=== PATIENT | male | born 1945 | race Caucasian/White ===

== ENCOUNTER → 2017-02-25 | Outpatient (CLI) | payer OTHER, MEDICARE | LOC: FIMAGING 14:48 | PROVIDERS: ATTEND Family Medicine | DX: M20.032 Swan-neck deformity of left finger(s) (principal) ==

== ENCOUNTER → 2017-03-18 | Outpatient (CLI) | payer OTHER, MEDICARE | LOC: FIMAGING 13:31 | PROVIDERS: ATTEND Internal Medicine | DX: R91.1 Solitary pulmonary nodule (principal); I71.2 Thoracic aortic aneurysm, without rupture; I25.10 Atherosclerotic heart disease of native coronary artery without angina pectoris; R91.8 Other nonspecific abnormal finding of lung field ==

== ENCOUNTER → 2017-04-15 | Outpatient (CLI) | payer OTHER, MEDICARE | LOC: BHFA 14:00 | PROVIDERS: ATTEND Internal Medicine Cardiovascular Disease | DX: I25.10 Atherosclerotic heart disease of native coronary artery without angina pectoris (principal) | CPT/HCPCS: 78452; 93017; A9500; J2785 ==

== ENCOUNTER → 2017-07-19 | Outpatient (CLI) | payer OTHER, MEDICARE | LOC: BMCIMAGING 16:53 | PROVIDERS: ATTEND Physician Assistant | DX: M21.242 Flexion deformity, left finger joints (principal) ==

== ENCOUNTER 2017-11-11 12:22 | Emergency (ER) | payer OTHER, MEDICARE ==
[2017-11-11 12:25] VITALS: TEMP 97.7
--- NOTE | 2017-11-11 12:33 | CPEKG ---
Heart Rate: 77 RR Interval: 779 P-R Interval: 184 QRSD Interval: 92 QT Interval: 404 QTC Interval: 458 P [place]: 58 QRS [place]: -27 T Wave [place]: 56 EKG Severity - OTHERWISE NORMAL ECG - EKG Impression: SINUS RHYTHM EKG Impression: BORDERLINE LEFT AXIS DEVIATION Electronically Signed By: Richie Craven 11-Nov-2017 12:58:10
--- NOTE | 2017-11-11 12:45 | EDPHY ---
H & P Time Seen by Provider: 11/11/17 12:35 HPI/ROS: CHIEF COMPLAINT: Shortness of breath with exertion HISTORY OF PRESENT ILLNESS: This 72-year-old man had stenting approximately 3 years ago after he had an abnormal treadmill test. The treadmill test was ordered as part of his preoperative evaluation for right shoulder surgery. Over the past 2 weeks he says that he is feels like he "has a cold coming on " but describes his symptoms as dull chest discomfort on the right side of his sternum and feeling short of breath every time he walks uphill. When he stops, the symptoms go way. Over the last couple of days even going up the stairs at his house he feels short of breath and right-sided chest discomfort goes away when he stops. Chest discomfort does not radiate. Not associated with fever or chills. He does have some head congestion associated as well as coughing 2 or 3 times a day but no hemoptysis or other sputum production. No leg swelling or recent travel or immobilization. Patient says it is worse in the morning and worse [place] but better in [place]. Currently lying in the gurney in the emergency department he is asymptomatic. He went to urgent care today and they referred him to us. REVIEW OF SYSTEMS: Eye: no change in vision ENT: no sore throat Cardiac: HPI Pulmonary: HPI Abdomen: no vomiting, diarrhea, abdominal pain Musculoskeletal: no back pain or leg swelling Skin: no rash Neuro: no headache Constitutional: no fever : no urinary symptoms A comprehensive 10 point review of systems is otherwise negative aside from elements mentioned in the history of present illness. PAST MEDICAL HISTORY: Includes bipolar, stenting as above, intracranial hemorrhage when he was on Effient. Social history: Nonsmoker, lives in the [facility] General Appearance: Alert and conversant, cooperative. Eyes: No scleral icterus. ENT, Mouth: Normal mucous membranes. Respiratory: Slight bilateral expiratory wheezing but no focal lung sounds and no rales. Cardiovascular: Regular rate and rhythm. Gastrointestinal: Abdomen is soft and non tender. Neurological: Alert and oriented x3. Normally conversant. Face symmetric, normal movement and sensation in all extremities. Skin: Warm and dry, no rashes. Musculoskeletal: No peripheral edema and no joint swelling. No calf tenderness. Psychiatric: Not agitated. Emergency Department course/MDM: Differential includes but not limited to pneumonia, PE, acute coronary syndrome , reactive airway disease with URI. Plan for EKG, chest x-ray, D-dimer and troponin. DuoNeb. 1258: Patient's blood pressure is 75 systolic although he is not dizzy or lightheaded and does not describe syncope. He is currently asymptomatic. It was recheck with a manual cuff. IV normal saline 1 L. 1319: D-dimer less than age adjusted cut off of 0.73. Low pretest probability for pulmonary embolism. Chest x-ray personally interpreted as negative. No infiltrates or pneumothorax. Normal mediastinum. 1400: 99/61. With the transient hypotension in the emergency department, admission for further workup is recommended to the patient. Patient refuses admission. He has logical reasons for not wanting to stay including the fact that he has a dog in the car that he needs to take care of. He tells me that "I'm just getting a cold. " He clearly has capacity to make decisions regarding his care. He is warned by me, and states he understands the risks of leaving against my recommendation including but not limited to disability, heart attack, . He will be treated with steroids and nebulizers for his audible wheezing and encouraged to return if he changes his mind or feels worse. 1445: CBC still pending, patient insistent about leaving now against medical advice. Smoking Status: Former smoker Constitutional: Initial Vital Signs Temperature (C) 36.5 C 11/11/17 12:23 Heart Rate 80 11/11/17 12:23 Respiratory Rate 18 11/11/17 12:23 Blood Pressure 110/78 11/11/17 12:23 O2 Sat (%) 94 11/11/17 12:23 O2 Delivery Mode Room Air Allergies/Adverse Reactions: Sulfa (Sulfonamide Antibiotics) Allergy (Severe, Verified 11/12/14 04:14) Hives lithium Allergy (Intermediate, Verified 11/12/14 04:14) Other-Enter Comments Home Medications: Medication Instructions Recorded Citalopram Hydrobromide [celeXA 10 10 mg PO DAILY@12 10/22/14 MG] LORazepam [Ativan (*)] 0.5 mg PO HS PRN 10/22/14 Methylphenidate HCl [Ritalin 5mg 15 mg PO BID@,18 10/22/14 (*)] Rosuvastatin Calcium [Crestor 20mg 20 mg PO HS 10/22/14 (*)] Tamsulosin HCl [Flomax 0.4 MG (*)] 0.4 mg PO HS 10/22/14 lamoTRIgine [LamICTAL 100 MG (*)] 50 mg PO BID@12,10/22/14 Asenapine Maleate [Saphris] 10 mg SL HS 11/05/14 Acetaminophen [Tylenol 325mg (*)] 650 mg PO Q4 PRN #0 tab 11/06/14 Metoprolol Tartrate [Lopressor 25 12.5 mg PO BID #60 tab 11/06/14 mg (*)] Albuterol Hfa Anes Only [Proair 2 puffs IH QID PRN #1 mdi 11/11/17 Hfa Icu (*)] predniSONE [prednisone 20mg (RX)] 40 mg PO DAILY 6 Days tab 11/11/17 Medical Decision Making - Diagnostics EKG Interpretation: 12-lead EKG interpreted by me; official reading is in trace master. My interpretation is sinus rhythm with borderline left axis, no acute ST changes. Rate 77. Imaging Results: Imaging Impressions Chest X-Ray 11/11/17 12:55 Impression: Clear lungs. No acute process. Differential Diagnosis: Differential diagnosis considered for shortness of breath including but not limited to pulmonary infectious process, COPD, asthma, pulmonary embolus and congestive heart failure. - Data Points Laboratory Results: Laboratory Results 11/11/17 13:45 11/11/17 12:46 11/11/17 11/11/17 11/11/17 13:45 12:46 12:46 WBC 8.83 10^3/uL 10^3/uL (3.80-9.50) RBC 3.70 10^6/uL L 10^6/uL (4.40-6.38) Hgb 12.3 g/dL L g/dL (13.7-17.5) Hct 35.3 % L % (40.0-51.0) MCV 95.4 fL fL (81.5-99.8) MCH 33.2 pg pg (27.9-34.1) MCHC 34.8 g/dL g/dL (32.4-36.7) RDW 12.2 % % (11.5-15.2) Plt Count 199 10^3/uL 10^3/uL (150-400) MPV 8.1 fL L fL (8.7-11.7) Neut % (Auto) 69.0 % % (39.3-74.2) Lymph % (Auto) 19.0 % % (15.0-45.0) Borden % (Auto) 10.1 % % (4.5-13.0) Eos % (Auto) 0.7 % % (0.6-7.6) Baso % (Auto) 0.7 % % (0.3-1.7) Nucleat RBC Rel Count 0.0 % % (0.0-0.2) Absolute Neuts (auto) 6.10 10^3/uL 10^3/uL (1.70-6.50) Absolute Lymphs (auto) 1.68 10^3/uL 10^3/uL (1.00-3.00) Absolute Monos (auto) 0.89 10^3/uL H 10^3/uL (0.30-0.80) Absolute Eos (auto) 0.06 10^3/uL 10^3/uL (0.03-0.40) Absolute Basos (auto) 0.06 10^3/uL 10^3/uL (0.02-0.10) Absolute Nucleated RBC 0.00 10^3/uL 10^3/uL (0-0.01) Immature Gran % 0.5 % % (0.0-1.1) Immature Gran # 0.04 10^3/uL 10^3/uL (0.00-0.10) D-Dimer 0.63 ug/mLFEU H ug/mLFEU (0.00-0.50) Sodium 144 mEq/L mEq/L (134-144) Potassium 4.2 mEq/L mEq/L (3.5-5.2) Chloride 108 mEq/L mEq/L (97-110) Carbon Dioxide 24 mEq/l mEq/l (22-31) Anion Gap 12 mEq/L mEq/L (8-16) BUN 19 mg/dL mg/dL (7-23) Creatinine 0.9 mg/dL mg/dL (0.7-1.3) Estimated GFR > 60 Glucose 99 mg/dL mg/dL (70-100) Calcium 8.8 mg/dL mg/dL (8.5-10.4) Troponin I < 0.012 ng/mL ng/mL (0.000-0.034) 11/11/17 12:46 WBC REJ RBC Not Reported Hgb Not Reported Hct Not Reported MCV Not Reported MCH Not Reported MCHC Not Reported RDW Not Reported Plt Count Not Reported MPV Not Reported Neut % (Auto) Not Reported Lymph % (Auto) Not Reported Borden % (Auto) Not Reported Eos % (Auto) Not Reported Baso % (Auto) Not Reported Nucleat RBC Rel Count Not Reported Absolute Neuts (auto) Not Reported Absolute Lymphs (auto) Not Reported Absolute Monos (auto) Not Reported Absolute Eos (auto) Not Reported Absolute Basos (auto) Not Reported Absolute Nucleated RBC Not Reported Immature Gran % Not Reported Immature Gran # Not Reported D-Dimer Sodium Potassium Chloride Carbon Dioxide Anion Gap BUN Creatinine Estimated GFR Glucose Calcium Troponin I Medications Given: Discontinued Medications Albuterol (Proventil Neb) 3 ml IH EDNOW ONE Stop: 11/11/17 14:07 Last Admin: 11/11/17 14:10 Dose: 3 ml Albuterol (Proventil Neb) 3 ml IH EDNOW ONE Stop: 11/11/17 14:07 Last Admin: 11/11/17 14:10 Dose: 3 ml Albuterol/Ipratropium (Duoneb) 3 ml IH EDNOW ONE Stop: 11/11/17 12:55 Last Admin: 11/11/17 13:04 Dose: 3 ml Sodium Chloride (Ns) 1,000 mls @ 0 mls/hr IV EDNOW ONE; Wide Open PRN Reason: Protocol Stop: 11/11/17 12:59 Last Admin: 11/11/17 13:04 Dose: 1,000 mls Methylprednisolone Sodium Succinate (Solu-Medrol) 125 mg IVP EDNOW ONE Stop: 11/11/17 14:07 Last Admin: 11/11/17 14:10 Dose: 125 mg Departure - Departure Disposition: Against Medical Advice Clinical Impression: Chest pain Qualifiers: Chest pain type: unspecified Qualified Code(s): R07.9 - Chest pain, unspecified Reactive airway disease Qualifiers: Asthma severity: moderate Asthma persistence: persistent Asthma complication type: with acute exacerbation Qualified Code(s): J45.41 - Moderate persistent asthma with (acute) exacerbation Condition: Good Instructions: Chest Pain (ED), Reactive Airways Disease (ED) Additional Instructions: Please return if you get worsening chest pain or shortness of breath, fevers or chills, or if you change your mind about inpatient evaluation. Referrals: Keri Arana MD [Primary Care Provider] - As per Instructions Prescriptions: Albuterol Hfa Anes Only [Proair Hfa Icu (*)] 2 puffs IH QID PRN #1 mdi PRN Reason: sob/wheezing predniSONE [prednisone 20mg (RX)] 40 mg PO DAILY 6 Days tab
[2017-11-11] MEDS ORDERED: IPRATROPIUM/ALBUTEROL 3 ML DEYVIAL IH ONE (12:54)
[2017-11-11] MEDS ORDERED: NS 1,000 ML IV ONE (12:58)
[2017-11-11] MEDS ORDERED: IPRATROPIUM/ALBUTEROL 3 ML DEYVIAL ONE (13:01)
[2017-11-11 13:10] LABS: ANION GAP 12 mEq/L (8-16); CALCIUM 8.8 mg/dL (8.5-10.4); CARBON DIOXIDE 24 mEq/l (22-31); CHLORIDE 108 mEq/L (97-110); CREATININE 0.9 mg/dL (0.7-1.3); GLOMERULAR FILTRATION RATE > 60; GLUCOSE 99 mg/dL (70-100); POTASSIUM 4.2 mEq/L (3.5-5.2); SODIUM 144 mEq/L (134-144)
[2017-11-11 13:21] LABS: TROPONIN I < 0.012 ng/mL (0.000-0.034)
[2017-11-11] MEDS ORDERED: ALBUTEROL 3 ML DEYVIAL IH ONE ×2 (14:06)
[2017-11-11] MEDS ORDERED: methylPREDNISolone SOD SUCC 125 MG/2 ML VIAL IVP ONE (14:06)
[2017-11-11 14:39] VITALS: BP 99/57; PULSE 74; RESP 18; O2SAT 95
[2017-11-11 14:50] LABS: % IMMATURE GRANULYOCYTES 0.5 % (0.0-1.1); ABSOLUTE IMMATURE GRANULOCYTES 0.04 10^3/uL (0.00-0.10); ADD DIFF? NO; ADD MORPH? NO; ADD SCAN? NO; ATYPICAL LYMPHOCYTE FLAG 10 (0-99); FRAGMENT RBC FLAG 0 (0-99); HEMATOCRIT 35.3 % (40.0-51.0); HEMOGLOBIN 12.3 g/dL (13.7-17.5); LEFT SHIFT FLG 0 (0-99); LIPEMIA HEMOLYSIS FLAG 90 (0-99); MEAN CELL HEMOGLOBIN 33.2 pg (27.9-34.1); MEAN CELL HEMOGLOBIN CONCENTR. 34.8 g/dL (32.4-36.7); MEAN CELL VOLUME 95.4 fL (81.5-99.8); MEAN PLATELET VOLUME 8.1 fL (8.7-11.7); PLATELET CLUMPS FLAG 10 (0-99); PLATELET COUNT 199 10^3/uL (150-400); RED CELL DISTRIBUTION WIDTH 12.2 % (11.5-15.2)
== END 2017-11-11 14:49 | disposition left against medical advice (07) ==
DX: J45.41 Moderate persistent asthma with (acute) exacerbation (principal); R07.9 Chest pain, unspecified; E86.9 Volume depletion, unspecified; Z87.891 Personal history of nicotine dependence
CPT/HCPCS: 71020; 93005; 96361; 96374; 99285; J2930

== ENCOUNTER → 2017-12-08 | Outpatient (CLI) | payer OTHER, MEDICARE | LOC: BHFA 14:00 | PROVIDERS: ATTEND Internal Medicine Interventional Cardiology | DX: I25.10 Atherosclerotic heart disease of native coronary artery without angina pectoris (principal) | CPT/HCPCS: 78452; 93017; A9500 ==

== ENCOUNTER 2018-04-17 05:46 | Inpatient (IN) | payer OTHER, MEDICARE ==
[2018-04-17] MEDS ORDERED: LR 1,000 ML IV ONE (06:20)
[2018-04-17] MEDS ORDERED: ceFAZolin 2 GM/SWFI 2 GM/20 ML SYR IVP ONE (06:20)
[2018-04-17] MEDS ORDERED: ACETAMINOPHEN 500 MG TAB PO ONE (06:20)
[2018-04-17] MEDS ORDERED: LIDOCAINE 1% 2 ML INJ ID PRN (06:20)
[2018-04-17] MEDS ORDERED: GABAPENTIN 300 MG CAP PO ONE (06:20)
[2018-04-17] MEDS ORDERED: BUPIVACAINE 0.25% 30 ML SDV ONE (06:30)
[2018-04-17] MEDS ORDERED: EPINEPHrine 1 MG/ML INJ ONE ×2 (06:32→07:17)
[2018-04-17] MEDS ORDERED: BACITRACIN 50,000 UNITS/10 ML SYR IRR ONE ×2 (06:32→10:38)
[2018-04-17] MEDS ORDERED: THROMBIN (BOVINE) 5,000 UNIT VIAL TP ONE (06:33)
[2018-04-17] MEDS ORDERED: CHLORHEXIDINE GLUC HIBICLENS 118 ML BTL TP ONE (06:33)
--- NOTE | 2018-04-17 06:43 | PDHPUP ---
History & Physical Update H&P update statement: This history and physical update is based on an assessment of the patient which was completed after admission or registration (within 24 hours), but prior to the surgery/procedure. H&P update: H&P reviewed & patient examined, no change in patient's condition since H&P completed
[2018-04-17] MEDS ORDERED: MIDAZOLAM 2 MG/2 ML VIAL ONE (07:23)
[2018-04-17] MEDS ORDERED: MIDAZOLAM 2 MG/2 ML VIAL IVP ONE (07:25)
--- NOTE | 2018-04-17 07:27 | PDANEPAE ---
ANE Past Medical History - Cardiovascular History Hx Hypertension: No Hx Arrhythmias: No Hx Chest Pain: No Hx Coronary Artery / Peripheral Vascular Disease: Yes Hx CHF / Valvular Disease: No Hx Palpitations: No Cardiovascular History Comment: STENT 10/22/14 - Pulmonary History Hx COPD: No Hx Asthma/Reactive Airway Disease: No Hx Recent Upper Respiratory Infection: No Hx Oxygen in Use at Home: No Hx Sleep Apnea: No Sleep Apnea Screening Result - Last Documented: Positive Pulmonary History Comment: PULMONARY NODULE - Neurologic History Hx Cerebrovascular Accident: No Hx Seizures: No Hx Dementia: No - Endocrine History Hx Diabetes: No - Renal History Hx Renal Disorders: Yes Renal History Comment: BPH. NOCTURIA - Liver History Hx Hepatic Disorders: No - Neurological & Psychiatric Hx Hx Neurological and Psychiatric Disorders: Yes Neurological / Psychiatric History Comment: BIPOLAR - Cancer History Hx Cancer: No - Congenital Disorder History Hx Congenital Disorders: No - GI History Hx Gastrointestinal Disorders: No - Other Health History Other Health History: ADRENAL ADENOMA. ACUTE ENCEPHALOPATHY. HYPOGONADISM - Chronic Pain History Chronic Pain: Yes (HEADACHES) - Surgical History Prior Surgeries: LUMBAR FUSION. MELO CATARACT. T&A. VASECTOMY WITH REVERSAL ANE Review of Systems Review of Systems: - Exercise capacity METS (RN): 4 METS ANE Patient History - Allergies Allergies/Adverse Reactions: Sulfa (Sulfonamide Antibiotics) Allergy (Severe, Verified 03/30/18 11:33) Hives lithium Allergy (Intermediate, Verified 03/30/18 11:33) Other-Enter Comments - Home Medications Home Medications: LORazepam [Ativan (*)] 0.5 mg PO BID PRN 10/22/14 [Last Taken 04/14/18] Tamsulosin HCl [Flomax 0.4 MG (*)] 0.4 mg PO HS 10/22/14 [Last Taken 04/16/18 22 :00] lamoTRIgine [LamICTAL 100 MG (*)] 200 mg PO HS 10/22/14 [Last Taken 04/16/18 22: 00] Acetaminophen [Tylenol 325mg (*)] 325 mg PO Q6 PRN 03/29/18 [Last Taken 04/09/18 ] Aspirin [Aspirin 81mg (*)] 81 mg PO DAILY 03/29/18 [Last Taken 04/09/18] Atorvastatin Calcium [Lipitor 40 mg (*)] 40 mg PO HS 03/29/18 [Last Taken 22:00] Citalopram [CeleXA] 20 mg PO DAILY 03/29/18 [Last Taken 04/16/18] Ferrous Sulfate [Ferrous Sulf 325 MG (*)] 325 mg PO DAILY 03/29/18 [Last Taken 04/09/18] Melatonin [Melatonin 3 MG (*)] 3 mg PO HS 03/29/18 [Last Taken 04/15/18] carBAMazepine [TEGretol (*)] 300 mg PO BID 03/29/18 [Last Taken 04/17/18 04:00] - NPO status NPO Since - Liquids (Date): 04/16/18 NPO Since - Liquids (Time): 22:00 NPO Since - Solids (Date): 04/16/18 NPO Since - Solids (Time): 22:00 - Anes Hx Anes Hx: no prior problems - Smoking Hx Smoking Status: Former smoker - Family Anes Hx Family Hx Anesthesia Complications: none ANE Labs/Vital Signs - Vital Signs Blood Pressure: 103/70 Heart Rate: 61 Respiratory Rate: 20 O2 Sat (%): 95 Height: 172.72 cm Weight: 77.111 kg ANE Physical Exam - Airway Neck exam: FROM Mallampati Score: Class 2 Mouth exam: normal dental/mouth exam - Pulmonary Pulmonary: no respiratory distress, no rales or rhonchi, clear to auscultation - Cardiovascular Cardiovascular: regular rate and rhythym, no murmur, rub, or gallop - ASA Status ASA Status: III ANE Anesthesia Plan Anesthesia Plan: general endotracheal anesthesia
[2018-04-17] MEDS ORDERED: PROPOFOL 200 MG/20 ML VIAL ONE (07:34)
[2018-04-17] MEDS ORDERED: PROPOFOL/EMULSION 500 MG/50 ML BOTTLE IV ONE ×2 (07:34→10:19)
[2018-04-17] MEDS ORDERED: HYDROmorphONE/DILAUDID 2 MG/ML INJ ONE ×2 (07:34→10:19)
[2018-04-17] MEDS ORDERED: ROCURONIUM 50 MG/5 ML VIAL ONE (07:38)
[2018-04-17] MEDS ORDERED: LIDOCAINE 2% 5 ML SDV ONE (07:38)
[2018-04-17] MEDS ORDERED: DEXAMETHASONE 4 MG/ML VIAL ONE ×2 (08:10)
[2018-04-17] MEDS ORDERED: diphenhydrAMINE 25 MG CAP PO PRN (08:32)
[2018-04-17] MEDS ORDERED: ONDANSETRON DISINTEGRATING 4 MG TAB PO PRN (08:32)
[2018-04-17] MEDS ORDERED: LACTULOSE 20 GM/30 ML UDCUP PO PRN (08:32)
[2018-04-17] MEDS ORDERED: morphINE PCA 30 MG/30 ML PCA IV PRN (08:32)
[2018-04-17] MEDS ORDERED: MAGNESIUM HYDROXIDE 30 ML UDCUP PO PRN (08:32)
[2018-04-17] MEDS ORDERED: NALOXONE HCL 0.4 MG/ML INJ IVP PRN ×2 (08:32→12:24)
[2018-04-17] MEDS ORDERED: BISACODYL 10 MG SUPP PR PRN (08:32)
[2018-04-17] MEDS ORDERED: KETAMINE 200 MG/20 ML VIAL ONE (08:39)
[2018-04-17] MEDS ORDERED: PHENYLEPHRINE HCL 100 MCG/ML SYR ONE ×3 (10:54→11:30)
[2018-04-17] MEDS ORDERED: PHENYLEPHRINE 10 MG/ML SDV ONE (12:00)
[2018-04-17] MEDS ORDERED: ceFAZolin 1 GM VIAL ONE (12:05)
[2018-04-17] MEDS ORDERED: ONDANSETRON 4 MG/2 ML VIAL IVP PRN (12:24)
[2018-04-17] MEDS ORDERED: PROMETHAZINE HCL 25 MG/ML INJ IVP PRN (12:24)
[2018-04-17] MEDS ORDERED: LABETALOL HCL 5 MG/ML 20 ML MDV IVP PRN (12:24)
[2018-04-17] MEDS ORDERED: ALBUTEROL 3 ML DEYVIAL IH PRN (12:24)
[2018-04-17] MEDS ORDERED: HYDROmorphONE/DILAUDID 2 MG/ML INJ IVP PRN (12:24)
[2018-04-17] MEDS ORDERED: LR 500 ML IV PRN (12:24)
[2018-04-17] MEDS ORDERED: ONDANSETRON 4 MG/2 ML VIAL ONE (12:34)
--- NOTE | 2018-04-17 13:38 | POSTOPPROG ---
Post Op Note Date of Operation: 04/17/18 Surgeon: Yanick Celis Dye Tank Tender: Kassidy Baird NP Anesthesiologist: Dr Macario Anesthesia: GET(General Endotracheal) Pre-op Diagnosis: Lumbar Stenosis Procedure: Removal hardware L4-5, L5-S1, L2-3, L3-4 TLIF with PSF L2-L5 Inf/Abcess present in the surg proc area at time of surgery?: No Depth: Deep Incisional (Fascial) EBL: 100-500 Total fluids administered: see anesthesia Complications: none Drains: Marcelo Palacios Date of Surgery: 04/17/18 Post Op Day: 0 Assessment/Plan: Assessment: 72 yr old male s/p L4-5, L5-S1 hardware removal, L2-3, L3-4 TLIF with PSF L2-L5 Plan: -Pain management, 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
--- NOTE | 2018-04-17 13:54 | POSTANESTH ---
Post Anesthetic Evaluation Cardiovascular Status: Normal, Stable, Similar to Pre-Op Cond Respiratory Status: Normal, Stable, Similar to Pre-op Cond. Level of Consciousness/Mental Status: Can Participate in Eval, Moderately Sleepy Pain Control: Adequate, Prn Tx Ordered Nausea/Vomiting Control: Adequate, Prn Tx Ordered Complications Possibly Related to Anesthesia: None Noted
[2018-04-17] MEDS ORDERED: fentaNYL 100 MCG/2 ML INJ ONE (13:56)
[2018-04-17] MEDS ORDERED: DIAZEPAM 5 MG/ML 1 ML SYR ONE (13:57)
[2018-04-17] MEDS: DIAZEPAM 5 MG/ML 1 ML SYR IVP PRN ×2 (14:02→15:17)
[2018-04-17] MEDS: fentaNYL 100 MCG/2 ML INJ IVP PRN ×4 (14:02→15:17)
[2018-04-17] MEDS: ACETAMINOPHEN 500 MG TAB PO SCH ×3 (15:44→21:18)
[2018-04-17] MEDS: FAMOTIDINE 20 MG TAB PO SCH ×2 (15:44→21:19)
[2018-04-17] MEDS: SENNOSIDES/DOCUSATE SODIUM TAB PO SCH ×2 (15:45→21:19)
[2018-04-17] MEDS: GABAPENTIN 300 MG CAP PO SCH ×2 (15:45→21:18)
[2018-04-17] MEDS: oxyCODONE IR 5 MG TAB PO PRN ×3 (16:09→21:20)
[2018-04-17] MEDS: METHOCARBAMOL 750 MG TAB PO PRN (16:11)
[2018-04-17] MEDS: ceFAZolin 2 GM/DEXTROSE 100 ML IV SCH (16:49)
--- NOTE | 2018-04-17 17:38 | GOP ---
[f rep st] OPERATIVE REPORT DATE OF OPERATION: 04/17/2018 SURGEON: Stephen Celis MD RN GYNECOLOGY: Kassidy Baird, Nurse Practitioner. PREOPERATIVE DIAGNOSIS: Severe spinal stenosis and adjacent segment disease, L2-3, L3-4; prior fusio n, L4-5, L5-S1. POSTOPERATIVE DIAGNOSIS: Severe spinal stenosis and adjacent segment disease, L2-3, L3-4; prior fusi on, L4-5, L5-S1. PROCEDURE PERFORMED: Removal of posterior segmental hardware L4, L5, S1 (60206); posterolateral and intervertebral arthrodesis L2-3, L3-4, with decompressions at each level bilaterally (91994 and 23416 ); placement of biomechanical intervertebral device L2-3, L3-4 (79523 x 2); posterior segmental instr umentation L2, L3, L4, L5 (23334); same incision bone graft harvest, microscope, spinal stereotaxy. FINDINGS: ESTIMATED BLOOD LOSS: 450 cc. INDICATIONS: Mr. Prajapati is an elderly gentleman with a prior history of a successful L4-5 and L5-S1 f usion. There was solid arthrodesis. He had some evidence of bony hypertrophy at the area of the fus ion sites, but there was really no evidence of complication or any significant nerve compression in m y view. He developed severe adjacent segment disease with radiating bilateral severe leg pain. I pichardo ggested removal of the prior hardware and an adjacent segment fusion at L2-3, L3-4. The risk of the surgery including the risk of spinal fluid leak, nerve injury, continued symptoms, and further adjace nt segment disease necessitating additional spinal surgery was discussed. He knew there was a chance surgery would fail to give him relief. He knew there was risk of screw and hardware malposition and malfunction. He also knew that surgery would be more uncomfortable, given the fact that we had to e xpose his entire prior surgical site and extended it rostrally for 2 levels. He accepted all of thes e risks and he wanted to proceed. DESCRIPTION OF PROCEDURE: Patient was taken to the operating room, placed in supine position. Gener al anesthesia was begun. He was flipped prone onto the Marcelo table. Care was taken to pad all poi nts of contact. His arms were kept at his side, and care was taken to protect his shoulders. His ba ck was sterilely prepped and draped in the usual fashion. We measured the prior surgical incision. There was a 37 mm incision on the left and a 43 mm incision on the right for a total of 8 cm. The ne w incision that we planned with 16 cm in length. Our original incision was 13 cm, but we later exten ded caudally because of the difficulty getting the S1 screws out. We did make a midline incision, ex posed the spinous processes at L1, L2, L3, L4, L5, and the sacrum. We exposed the prior hardware at L4-5 and S1. We removed the cap screws at L4-5 and S1. We then removed the rods and removed the L4 and L5 screws without any difficulty. Both S1 screws were encased in bone. There was solid posterol ateral bony arthrodesis at each level. We then took time to drill out each of the S1 screws and we w ere able to successfully remove these. We then denuded the facet joints at L2-3, L3-4. We preserved the L1-2 facet joints rostrally. We attached the [employer] reference frame, and using frame of [facility] stereotaxy, placed pedicle screws bilaterally at L2, L3, and L4. We then placed additional screws at L5 to back up the inferior portion of our construct, and these screws were all 50 mm long. We use d 6.5 x 50 mm. They all stimulated at acceptable levels. After the screws went in, there was some d ifficulty obtaining lower SSEPs, and this was a new finding that was discovered after the screws were put in. The was used to verify the placement of all the pedicle screws and none of them had violated the canal. It was unclear whether this was a technical issue with our monitoring, but t he tech discussed this with Anesthesia. They did raise the blood pressure and the tech made some adj ustments in his equipment and the SSEPs returned. We continued with the case. We placed 100 mm rods down over these screws, distracted L2-3, L3-4, got some minimal distraction at L2-3 but really none at L3-4. We removed all the soft tissue, the bone at L2-3, L3-4, harvested the L3 spinous process an d the rostral L4 spinous process for autologous grafting purposes. The caudal L2 spinous process was harvested for autologous grafting purposes. We drilled a wide laminectomies at L2-3, L3-4, and deco mpressed from the L4 pedicle to the L4 pedicle and the L3 pedicle to the L3 pedicle, as well as the i nferior L2 pedicle to the inferior L2 pedicle. There were significant dural adhesions on the right s marky at L3-4. We were able to separate these and the hypertrophic right L3-4 facet from the dura. We got an excellent decompression. We removed the left L2-3, L3-4 facet joint. Using a transfacet carmen sprague, we swept the L4 nerve root medially, incised the L3-4 disk, removed the disk and the cartilagi nous endplates, and in this case, we elected to go with a 7 mm Laurel PEEK intervertebral device. We did not think this space would hold the expandable cages. We swept the L3 nerve root medially, an d from a left-sided approach at L2-3, we incised the L2-3 disk and removed the disk and the cartilagi nous endplates. We roughened the subchondral bone to create arthrodesis just as we had done at L3-4. Here, we chose a 7 x 28 mm expandable cage. We placed bone autograft and BMP into the disk spaces. We used 4 mg of BMP total for the entire surgery; 2 mg were placed in the disk space, 1 at each lev el. The bone that was harvested was from the laminectomies and we processed this bone and then place d it into the intervertebral space along with the implants. We used a 7 x 25 mm crescent cage at L3- 4. We were happy with its position and the 7 x 28 mm expandable Elevate cage at L2-3. We final tigh tened all the cap screws according to company specification. We denuded and decorticated all remaini ng bone at L2-3, 3-4, and even 4-5 to create posterolateral arthrodesis and placed bony autograft pos terolaterally bilaterally at L2-3, L3-4, as well as BMP. We used 2 mg posterolaterally, 1 on each si de. We then placed a subfascial drain and then closed the incision in multiple layers using Vicryl s utures. A running PDS was placed in the skin itself. The patient was reversed from anesthesia, extu bated, and transferred to recovery room in stable condition. There were no complications. COMPLICATIONS: None. INSTRUMENTATION USED: Pax8ra pedicle screw instrumentation. We removed percutaneous Touch[employer] on [employer] instrumentation. /[id number]/MODL
[2018-04-17] MEDS ORDERED: NS 500 ML IV ONE ×2 (18:30→22:00)
[2018-04-17] MEDS ORDERED: NS W/ 20 KCl/L 1,000 ML IV SCH (18:30)
--- NOTE | 2018-04-17 18:44 | PDMN ---
Medical Necessity Medical necessity: IP surgery per [facility] cpt 05650, 07604, 99256 TLIF, removal of posterior hardware
[2018-04-17] MEDS: ATORVASTATIN CALCIUM 40 MG TAB PO SCH (21:19)
[2018-04-17] MEDS: lamoTRIgine 100 MG TAB PO SCH (21:19)
[2018-04-17] MEDS: CARBAMAZEPINE 100 MG CHEWABLE TAB PO SCH (21:19)
[2018-04-17] MEDS: TAMSULOSIN HCL 0.4 MG CAP PO SCH (21:19)
[2018-04-17] MEDS: METOPROLOL TARTRATE 25 MG TAB PO SCH (21:20)
[2018-04-18] MEDS: ceFAZolin 2 GM/DEXTROSE 100 ML IV SCH (00:40)
[2018-04-18] MEDS: METHOCARBAMOL 750 MG TAB PO PRN ×2 (00:42→09:15)
[2018-04-18 05:08] LABS: PLATELET COUNT 120 10^3/uL (150-400)
[2018-04-18] MEDS: GABAPENTIN 300 MG CAP PO SCH ×3 (06:31→21:09)
[2018-04-18] MEDS: oxyCODONE IR 5 MG TAB PO PRN ×4 (06:32→21:17)
[2018-04-18] MEDS: ACETAMINOPHEN 500 MG TAB PO SCH ×3 (06:36→21:05)
[2018-04-18] MEDS: CITALOPRAM 20 MG TAB PO SCH (09:04)
[2018-04-18] MEDS: FERROUS SULFATE 325 MG TAB PO SCH (09:04)
[2018-04-18] MEDS: FAMOTIDINE 20 MG TAB PO SCH ×2 (09:04→21:08)
[2018-04-18] MEDS: SENNOSIDES/DOCUSATE SODIUM TAB PO SCH ×2 (09:05→21:12)
[2018-04-18] MEDS: POLYETHYLENE GLYCOL 3350 17 GM PKT PO PRN (09:16)
[2018-04-18] MEDS: METOPROLOL TARTRATE 25 MG TAB PO SCH ×2 (09:22→21:11)
[2018-04-18] MEDS: CARBAMAZEPINE 100 MG CHEWABLE TAB PO SCH ×2 (09:54→21:08)
--- NOTE | 2018-04-18 10:14 | NEUSURGPN ---
Date of Surgery: 04/17/18 Post Op Day: 1 Assessment/Plan: Assessment: 72 yr old male s/p L4-5, L5-S1 hardware removal, L2-3, L3-4 TLIF with PSF L2-L5 POD#1 Plan: -Pain management, -PT/OT -Post op xrays demonstrate stable hardware placement -H/H this am 8.8/25.9, patient not symptomatic. Will continue to follow -Hyper reflexive on exam, Calcium 7.8-will order supplement. Patient denies any cervical issues or upper extremity symptoms. May consider cervical MRI if remains persistent. -Wear brace when out of bed, patient has brace -TIERA to suction-will leave in today -Patient seen by Dr Celis as well Please call neurosurgery with any questions/concerns Subjective: Expected lower back pain, legs feel better Objective: AxO x3 BLE BUE 5/5 Sensation intact to light touch BLE Reflexes: bilateral knees 4+, positive owens on the right Dressing CDI TIERA patent Neuro Check Frequency: per routine Urinary Catheter in Place: No Catheter Insertion Date: 04/17/18 - Physician Discussed Patient with : Vimal Patient Seen by : Vimal Neurosurgery Physical Exam - Vitals, I&O, Labs I and O 04/17/18 04/18/18 04/19/18 05:59 05:59 05:59 Intake Total 4940 Output Total 1780 220 Balance 3160 -220 Weight 77.111 kg Intake: Oral (ml) 1440 IV Intake (ml) 2500 IV Infused (ml) 1000 NS W/ 20 KCl/L 1,000 ml @ 500 100 mls/hr IV CONT JUAN A Rx#:[id number] Ns 500 ml @ 250 mls/hr IV 500 ONCE ONE Rx#:[id number] Output: Urine (ml) 925 100 Catheter 925 100 TIERA Drain Output (ml) 855 120 #1 Back Marcelo Palacios 855 120 Other: Intake Quantity No Sufficient Bladder Scan Volume (ml) Catheter 55 Vital Signs Temp Pulse Resp BP Pulse Ox 36.7 C 100 16 99/64 L 94 04/18/18 07:46 04/18/18 09:22 04/18/18 07:46 04/18/18 09:22 04/18/18 07:46 Laboratory Results 04/18/18 04:40 04/18/18 04:40 ICD10 Worksheet Patient Problems: Problems Problem Status Onset Brain tumor Acute Coronary artery disease Acute Presence of stent in LAD coronary artery Acute
--- NOTE | 2018-04-18 12:20 | ASMTCMCOM ---
CM Note CM Note Notes: Patient is POD#1 L4-5, L5-S1 hardware removal, L2-3, L3-4 TLIF with PSF L2-L5. He is normally independent, lives with . PT/OT evals pending. Case Management will assist with any discharge needs. Date Signed: 04/18/2018 12:20 PM Electronically Signed By:Casi Mohan RN
--- NOTE | 2018-04-18 16:16 | ASMTCMCOM ---
CM Note CM Note Notes: Met with patient and spoke with via phone re: discharge plan of care. We discussed the possibility of HHC, patient and feel like this is a good idea. Patient does live up [facility], finding HHC may be a bit challenging. I have sent a referral to [facility], awaiting response. CM will follow-up with patient and on Tuesday. Plan: Likely HHC Date Signed: 04/18/2018 04:15 PM Electronically Signed By:Julia Archer RN
[2018-04-18] MEDS: ATORVASTATIN CALCIUM 40 MG TAB PO SCH (21:06)
[2018-04-18] MEDS: CALCIUM CARBONATE 500 MG TAB PO SCH (21:07)
[2018-04-18] MEDS: lamoTRIgine 100 MG TAB PO SCH (21:09)
[2018-04-18] MEDS: TAMSULOSIN HCL 0.4 MG CAP PO SCH (21:12)
[2018-04-19] MEDS: ACETAMINOPHEN 500 MG TAB PO SCH ×3 (05:11→21:28)
[2018-04-19] MEDS: oxyCODONE IR 5 MG TAB PO PRN ×3 (05:12→19:13)
[2018-04-19] MEDS: GABAPENTIN 300 MG CAP PO SCH ×3 (05:12→21:28)
[2018-04-19] MEDS: FERROUS SULFATE 325 MG TAB PO SCH ×2 (08:12→08:15)
[2018-04-19] MEDS: CARBAMAZEPINE 100 MG CHEWABLE TAB PO SCH ×2 (08:12→21:28)
[2018-04-19] MEDS: CITALOPRAM 20 MG TAB PO SCH (08:12)
[2018-04-19] MEDS: SENNOSIDES/DOCUSATE SODIUM TAB PO SCH ×2 (08:15→21:28)
[2018-04-19] MEDS: FAMOTIDINE 20 MG TAB PO SCH ×2 (08:16→21:28)
[2018-04-19] MEDS: CALCIUM CARBONATE 500 MG TAB PO SCH ×2 (08:16→21:28)
--- NOTE | 2018-04-19 08:53 | NEUSURGPN ---
Date of Surgery: 04/17/18 Post Op Day: 2 Assessment/Plan: Assessment: 72 yr old male s/p L4-5, L5-S1 hardware removal, L2-3, L3-4 TLIF with PSF L2-L5 POD#2 Plan: -Pain management, pain currently controlled with oral medications. Incision pain 3-/ -PT/OT -Post op xrays demonstrate stable hardware placement -H/H this am 6.9/20.5, patient not symptomatic. Denies SOB, dizziness. Sitting up in bed eating breakfast, ambulated to restroom without difficulty. Will consider transfusion if patient becomes symptomatic -Wear brace when out of bed, patient has brace -TIERA to suction-will remove this am -Post op xrays show stable hardware placement, reviewed with patient -Patient seen by Dr Celis as well Please call neurosurgery with any questions/concerns Subjective: Expected incisional pain, legs feel better Objective: AxO x3 No facial droop 5/5 BUE, BLE sensation intact lt touch BLE Dressing CDI TIERA patent Neuro Check Frequency: per routine Urinary Catheter in Place: No Catheter Insertion Date: 04/17/18 - Physician Discussed Patient with : Vimal Patient Seen by : Vimal Neurosurgery Physical Exam - Vitals, I&O, Labs I and O 04/18/18 04/19/18 04/20/18 05:59 05:59 05:59 Intake Total 4940 1150 Output Total 1780 810 Balance 3160 340 Weight 77.111 kg Intake: Oral (ml) 1440 1150 IV Intake (ml) 2500 IV Infused (ml) 1000 NS W/ 20 KCl/L 1,000 ml @ 500 100 mls/hr IV CONT JUAN A Rx#:[id number] Ns 500 ml @ 250 mls/hr IV 500 ONCE ONE Rx#:[id number] Output: Urine (ml) 925 500 Catheter 925 100 Urinal 400 TIERA Drain Output (ml) 855 310 #1 Back Marcelo Palacios 855 310 Other: Intake Quantity No Yes Sufficient Number of Voids Toilet 1 Urinal 1 Bladder Scan Volume (ml) Catheter 55 Vital Signs Temp Pulse Resp BP Pulse Ox 36.6 C 75 18 92/58 L 95 04/19/18 08:00 04/19/18 08:00 04/19/18 08:00 04/19/18 04:00 04/19/18 08:00 Laboratory Results 04/19/18 04:24 04/18/18 04:40 ICD10 Worksheet Patient Problems: Problems Problem Status Onset Brain tumor Acute Coronary artery disease Acute Presence of stent in LAD coronary artery Acute
[2018-04-19] MEDS: METOPROLOL TARTRATE 25 MG TAB PO SCH ×2 (10:37→21:28)
[2018-04-19] MEDS: METHOCARBAMOL 750 MG TAB PO PRN (10:47)
--- NOTE | 2018-04-19 15:22 | ASMTCMCOM ---
CM Note CM Note Notes: Karuna can staff pt for C PT/OT. Keri Beckman met with pt today. CM to follow. Date Signed: 04/19/2018 03:21 PM Electronically Signed By:ISABELL Ontiveros
[2018-04-19] MEDS: TAMSULOSIN HCL 0.4 MG CAP PO SCH (21:27)
[2018-04-19] MEDS: lamoTRIgine 100 MG TAB PO SCH (21:27)
[2018-04-19] MEDS: ATORVASTATIN CALCIUM 40 MG TAB PO SCH (21:27)
[2018-04-20] MEDS: oxyCODONE IR 5 MG TAB PO PRN ×4 (04:02→20:55)
[2018-04-20] MEDS: GABAPENTIN 300 MG CAP PO SCH ×3 (06:47→20:55)
[2018-04-20] MEDS: ACETAMINOPHEN 500 MG TAB PO SCH ×4 (06:47→20:56)
[2018-04-20] MEDS: POLYETHYLENE GLYCOL 3350 17 GM PKT PO PRN (07:15)
[2018-04-20] MEDS: CALCIUM CARBONATE 500 MG TAB PO SCH ×2 (07:17→20:56)
[2018-04-20] MEDS: CARBAMAZEPINE 100 MG CHEWABLE TAB PO SCH ×2 (07:18→20:56)
[2018-04-20] MEDS: METHOCARBAMOL 500 MG TAB PO PRN ×4 (07:19→21:03)
[2018-04-20] MEDS: SENNOSIDES/DOCUSATE SODIUM TAB PO SCH ×2 (07:20→20:56)
[2018-04-20] MEDS: METOPROLOL TARTRATE 25 MG TAB PO SCH ×2 (07:20→20:56)
[2018-04-20] MEDS: CITALOPRAM 20 MG TAB PO SCH (07:20)
[2018-04-20] MEDS: FAMOTIDINE 20 MG TAB PO SCH ×2 (07:21→20:56)
[2018-04-20] MEDS: FERROUS SULFATE 325 MG TAB PO SCH (07:21)
[2018-04-20] MEDS: ENOXAPARIN 40 MG/0.4 ML SYR SC SCH (07:21)
--- NOTE | 2018-04-20 12:48 | NEUSURGPN ---
Assessment/Plan: Assessment/Plan: Assessment: 72 yr old male s/p L4-5, L5-S1 hardware removal, L2-3, L3-4 TLIF with PSF L2-L5 POD#3 Plan: -Pain management, had a bad night but feels he is back on track this morning and tolerating current pain medication regimen -PT/OT -Post op xrays demonstrate stable hardware placement -H/H this am 6/20 this morning again, patient not symptomatic. Denies SOB, dizziness. Sitting up in bed eating breakfast, ambulated to restroom without difficulty. Will not do anymore labs unless patient becomes symptomatic -Wear brace when out of bed, patient has brace -TIERA removed -Patient seen by Dr Celis as well -Due to pain control issues, and low H/H, will keep one more night Please call neurosurgery with any questions/concerns Subjective: Patient had a very rough night due to pain control. Was dizzy when he went into the bathroom. Objective: AxO x3 No facial droop 5/5 BUE, BLE sensation intact lt touch BLE Dressing CDI Catheter Insertion Date: 04/17/18 - Physician Discussed Patient with : Vimal Patient Seen by : Vimal Neurosurgery Physical Exam - Vitals, I&O, Labs I and O 04/19/18 04/20/18 04/21/18 05:59 05:59 05:59 Intake Total 1150 1450 500 Output Total 810 150 Balance 340 1300 500 Intake: Oral (ml) 1150 1450 500 Output: Urine (ml) 500 Catheter 100 Urinal 400 TIERA Drain Output (ml) 310 150 #1 Back Marcelo Palacios 310 150 Other: Intake Quantity Yes Yes Yes Sufficient Number of Voids Toilet 1 1 1 Urinal 1 1 Vital Signs Temp Pulse Resp BP Pulse Ox 36.7 C 87 16 120/62 97 04/20/18 11:57 04/20/18 11:57 04/20/18 11:57 04/20/18 11:57 04/20/18 11:57 Laboratory Results 04/20/18 04:45 04/18/18 04:40 ICD10 Worksheet Patient Problems: Problems Problem Status Onset Brain tumor Acute Coronary artery disease Acute Presence of stent in LAD coronary artery Acute
[2018-04-20] MEDS: ATORVASTATIN CALCIUM 40 MG TAB PO SCH (20:55)
[2018-04-20] MEDS: lamoTRIgine 100 MG TAB PO SCH (20:55)
[2018-04-20] MEDS: TAMSULOSIN HCL 0.4 MG CAP PO SCH (20:56)
[2018-04-21] MEDS: oxyCODONE IR 5 MG TAB PO PRN ×3 (00:56→09:04)
[2018-04-21] MEDS: METHOCARBAMOL 500 MG TAB PO PRN ×2 (04:36→09:00)
[2018-04-21] MEDS: GABAPENTIN 300 MG CAP PO SCH (05:09)
[2018-04-21] MEDS: ACETAMINOPHEN 500 MG TAB PO SCH (05:56)
--- NOTE | 2018-04-21 07:20 | NEUSURGPN ---
Date of Surgery: 04/17/18 Post Op Day: 4 Assessment/Plan: 72 yr old male s/p L4-5, L5-S1 hardware removal, L2-3, L3-4 TLIF with PSF L2-L5 POD#4 Plan: -Pain controlled on current regimen -PT/OT -Post op xrays demonstrate stable hardware placement -H/H 5/24 am 05/17, patient not symptomatic. Denies SOB, dizziness. Will not do anymore labs unless patient becomes symptomatic -Wear brace when out of bed, patient has brace -TIERA removed -Discharge home today with home health care Please call neurosurgery with any questions/concerns Subjective: Denies lower extremity pain, numbness, tingling. Admits to localized back pain. Objective: Awake. Alert. PERRL. EOMI Following commands Muscle strength full at 5/5 Sensation intact Catheter Insertion Date: 04/17/18 - Physician Discussed Patient with : Vimal Neurosurgery Physical Exam - Vitals, I&O, Labs I and O 04/20/18 04/21/18 04/22/18 05:59 05:59 05:59 Intake Total 1450 1490 Output Total 150 Balance 1300 1490 Intake: Oral (ml) 1450 1490 Output: TIERA Drain Output (ml) 150 #1 Back Marcelo Palacios 150 Other: Intake Quantity Yes Yes Sufficient Number of Voids Toilet 1 2 Urinal 1 1 Vital Signs Temp Pulse Resp BP Pulse Ox 37.9 C 82 16 102/59 L 97 04/20/18 15:55 04/20/18 15:55 04/20/18 15:55 04/20/18 15:55 04/20/18 15:55 Laboratory Results 04/20/18 04:45 04/18/18 04:40 ICD10 Worksheet Patient Problems: Problems Problem Status Onset Brain tumor Acute Coronary artery disease Acute Presence of stent in LAD coronary artery Acute
--- NOTE | 2018-04-21 07:25 | PDIAF ---
- Diagnosis Diagnosis: Lumbar spondylosis s/p L4-S1 hardware removal, L2/3, L3/4 TLIF with L2-L5 f Code Status: Full Code - Medication Management Discharge Medications: Medications to Continue on Transfer LORazepam [Ativan (*)] 0.5 mg PO BID PRN 10/22/14 [Last Taken 04/14/18] Tamsulosin HCl [Flomax 0.4 MG (*)] 0.4 mg PO HS 10/22/14 [Last Taken 04/16/18 22 :00] lamoTRIgine [LamICTAL 100 MG (*)] 200 mg PO HS 10/22/14 [Last Taken 04/16/18 22: 00] Metoprolol Tartrate [Lopressor 25 mg (*)] 12.5 mg PO BID #60 tab 11/06/14 [Last Taken 04/16/18 22:00] Acetaminophen [Tylenol 325mg (*)] 325 mg PO Q6 PRN 03/29/18 [Last Taken 04/09/18 ] Atorvastatin Calcium [Lipitor 40 mg (*)] 40 mg PO HS 03/29/18 [Last Taken 22:00] Citalopram [CeleXA 20 MG] 20 mg PO DAILY 03/29/18 [Last Taken 04/16/18] Ferrous Sulfate [Ferrous Sulf 325 MG (*)] 325 mg PO DAILY 03/29/18 [Last Taken 04/09/18] Melatonin [Melatonin 3 MG (*)] 3 mg PO HS 03/29/18 [Last Taken 04/15/18] carBAMazepine [TEGretol (*)] 300 mg PO BID 03/29/18 [Last Taken 04/17/18 04:00] Methocarbamol [Robaxin 500 mg (*)] 750 mg PO QID PRN #60 tab 04/21/18 [Last Taken Unknown] oxyCODONE IR [Oxycodone Ir (*)] 5 - 10 mg PO Q4HRS PRN #90 tab 04/21/18 [Last Taken Unknown] Discharge Medications: Refer to the Discharge Home Medication list for PRN reason. - Orders Services needed: Home Care, Physical Therapy, Occupational Therapy Home Care Face to Face: I certify that this patient was under my care and that I had the required [id number] encounter meeting the encounter requirements on the discharge day. My findings support the fact that the patient is homebound as defined in Home Care Face to Face Continued: CMS Chapter 7 Medicare Benefits Manual 30.1.1 , The condition of the patient is such that there exists a normal inability to leave home and consequently, leaving home would require a considerable and taxing effort. Isolation Type: None Diet Recommendation: no restrictions on diet Diet Texture: Regular Texture Diet Wound Care Instructions: Ok to shower and get incision wet. Be gentle. Pat dry. Activity/Weight Bearing Restrictions: No lifting more than 10 pounds or bending/ twisting. Wear brace when out of bed. - Follow Up Care Current Providers and Referrals: Keri Arana MD [Primary Care Provider] - Yanick Celis MD [Medical Doctor] - follow up in 2 weeks
[2018-04-21 08:48] VITALS: BP 110/68
[2018-04-21] MEDS: SENNOSIDES/DOCUSATE SODIUM TAB PO SCH (09:01)
[2018-04-21] MEDS: METOPROLOL TARTRATE 25 MG TAB PO SCH (09:02)
[2018-04-21] MEDS: CARBAMAZEPINE 100 MG CHEWABLE TAB PO SCH (09:02)
[2018-04-21] MEDS: CITALOPRAM 20 MG TAB PO SCH (09:02)
[2018-04-21] MEDS: CALCIUM CARBONATE 500 MG TAB PO SCH (09:04)
[2018-04-21] MEDS: FAMOTIDINE 20 MG TAB PO SCH (09:04)
[2018-04-21] MEDS: ENOXAPARIN 40 MG/0.4 ML SYR SC SCH (09:05)
[2018-04-21] MEDS: POLYETHYLENE GLYCOL 3350 17 GM PKT PO PRN (09:05)
--- NOTE | 2018-04-21 14:47 | ASDISCHSUM ---
Discharge Information Plan Status:Home with Home Health Medically Cleared to Leave: Discharge Date:04/21/2018 11:11 AM CM D/C Disposition:Home Health Service ADT D/C Disposition:[id number] Projected Discharge Date:04/19/2018 11:00 AM Transportation at D/C:Family Discharge Delay Reason: Follow-Up Date:04/19/2018 11:00 AM Discharge Slot: Final Diagnosis: Placement Information Referral Type:*Home Health Care Services Referral ID:[id number] Provider Name:Karuna [facility] (DN) Address 1:[address] [address] Address 2: City:[place] Selection [place]: State:[place] Patient Contact Information Contact Name:GALI Relationship: Address:[address] City:[place] [facility] Phone: State/Zip Code:[place] [address] Email: Financial Information Financial Class:Medicare Primary Plan Desc:MEDICARE INPATIENT Primary Plan Number:[id number] Secondary Plan Desc:[employer]/MDR SUPPLEMENT Secondary Plan Number:[id number] Assessment Information [facility] CM Progress Note CM Note CM Note Notes: Patient is POD#1 L4-5, L5-S1 hardware removal, L2-3, L3-4 TLIF with PSF L2-L5. He is normally independent, lives with . PT/OT evals pending. Case Management will assist with any discharge needs. Date Signed: 04/18/2018 12:20 PM Electronically Signed By:Casi Mohan RN [facility] CM Progress Note CM Note CM Note Notes: Met with patient and spoke with via phone re: discharge plan of care. We discussed the possibility of HHC, patient and feel like this is a good idea. Patient does live up [address], finding HHC may be a bit challenging. I have sent a referral to [facility], awaiting response. CM will follow-up with patient and on Tuesday. Plan: Likely HHC Date Signed: 04/18/2018 04:15 PM Electronically Signed By:Julia Archer RN [facility] CM Progress Note CM Note CM Note Notes: [facility] can staff pt for HHC PT/OTJamar Saavedra with [facility] met with pt today. CM to follow. Date Signed: 04/19/2018 03:21 PM Electronically Signed By:ISABELL Ontiveros [facility] ALE[facility] Progress Note CM Note CM Note Notes: Pt medically stable for d/c with [facility] PT. Orders sent in [employer]. Lakisha Son at [facility] intake. Date Signed: 04/21/2018 02:46 PM Electronically Signed By:ISABELL Ontiveros Intervention Information Intervention Type:*IM-Signed Date of Service:04/21/2018 10:34 AM Patient Type:Inpatient Staff Member:Caryl Golden Hours: Discipline: Severity: Comment:
== END 2018-04-21 11:11 | disposition home health service (06) | DRG 455 ==
LOC: F3N 05:46
PROVIDERS: ADMIT Neurological Surgery; ATTEND Neurological Surgery
PROC: 0SP00AZ Removal of Interbody Fusion Device from Lumbar Vertebral Joint, Open Approach (ICD-10-PCS; principal; 2018-04-17 07:30)
PROC: 0SP30AZ Removal of Interbody Fusion Device from Lumbosacral Joint, Open Approach (ICD-10-PCS; principal; 2018-04-17 07:30)
PROC: 01NB0ZZ Release Lumbar Nerve, Open Approach (ICD-10-PCS; principal; 2018-04-17 07:30)
PROC: 0SG1071 Fusion of 2 or more Lumbar Vertebral Joints with Autologous Tissue Substitute, Posterior Approach, Posterior Column, Open Approach (ICD-10-PCS; principal; 2018-04-17 07:30)
PROC: 0SG10AJ Fusion of 2 or more Lumbar Vertebral Joints with Interbody Fusion Device, Posterior Approach, Anterior Column, Open Approach (ICD-10-PCS; principal; 2018-04-17 07:30)
PROC: 00NY0ZZ Release Lumbar Spinal Cord, Open Approach (ICD-10-PCS; principal; 2018-04-17 07:30)
PROC: 0ST20ZZ Resection of Lumbar Vertebral Disc, Open Approach (ICD-10-PCS; principal; 2018-04-17 07:30)
DX: M48.061 Spinal stenosis, lumbar region without neurogenic claudication (principal); M54.16 Radiculopathy, lumbar region; M51.36 Other intervertebral disc degeneration, lumbar region; R91.1 Solitary pulmonary nodule; N40.1 Benign prostatic hyperplasia with lower urinary tract symptoms; F31.9 Bipolar disorder, unspecified; Z87.891 Personal history of nicotine dependence; Z95.5 Presence of coronary angioplasty implant and graft
CPT/HCPCS: 97116-GP; 97161-GP; 97166-GO; 97530-GP; 97535-GO; C1713; G8978-GP-CJ; G8979-GP-CI; G8980-GP-CI; G8987-GO-CJ; G8988-GO-CI; J0171; J0690; J1100; J1170; J1650; J2250; J2270; J2370; J2405; J2704; J3010; J3360

== ENCOUNTER → 2018-05-05 | Outpatient (CLI) | payer OTHER, MEDICARE | LOC: BHFA 14:00 | PROVIDERS: ATTEND Internal Medicine Cardiovascular Disease | DX: I72.9 Aneurysm of unspecified site (principal); I25.10 Atherosclerotic heart disease of native coronary artery without angina pectoris ==

== ENCOUNTER → 2018-11-10 | Outpatient (CLI) | payer OTHER, MEDICARE | LOC: BMCIMAGING 12:02 | PROVIDERS: ATTEND Emergency Medicine | DX: R05 Cough (principal) ==

== ENCOUNTER → 2018-12-14 | Outpatient (CLI) | payer OTHER, MEDICARE | LOC: BHFA 15:30 | PROVIDERS: ATTEND Internal Medicine Cardiovascular Disease | DX: R06.02 Shortness of breath (principal); R60.9 Edema, unspecified ==

== ENCOUNTER → 2019-01-31 | Outpatient (CLI) | payer OTHER, MEDICARE ==
[~2019-01-31] MED LIST: IOPAMIDOL (ISOVUE-370) 150 ML BTL IV ONE; NITROGLYCERIN 0.4 MG BTL SL ONE
== END ==
LOC: FIMAGING 08:39
PROVIDERS: ATTEND Internal Medicine Interventional Cardiology
DX: I25.10 Atherosclerotic heart disease of native coronary artery without angina pectoris (principal); I71.2 Thoracic aortic aneurysm, without rupture
CPT/HCPCS: 75574; Q9967